=== PATIENT | female | born 1950 | race Caucasian/White ===

== ENCOUNTER 2016-11-21 08:58 | Emergency (ER) | payer MEDICARE, BC ==
[~2016-11-21] VITALS: Ht 165.1 cm; Wt 61.2 kg
[2016-11-21 11:13] VITALS: BP 125/88
== END 2016-11-21 11:14 | disposition home or self-care (01) ==
LOC: ER 09:09
DX: M25.572 Pain in left ankle and joints of left foot (principal); E06.3 Autoimmune thyroiditis
CPT/HCPCS: 93971; 99284; A4606; Z7610